=== PATIENT | female | born 1965 | race Caucasian/White ===

== ENCOUNTER 2019-01-22 11:07 | Inpatient (IN) ==
[2019-01-22] MEDS ORDERED: Clindamycin 900 MG/50 ML 900 MG/50 ML IV.SOLN IVPB ONE (11:31)
[2019-01-22] MEDS ORDERED: Ringers Solution, Lactated 1,000 ML IVC SCH (11:45)
[2019-01-22] MEDS ORDERED: *HR* Morphine Sulfate/PF 10 MG/10 ML AMPUL ONE (11:57)
--- NOTE | 2019-01-22 12:24 | Anesthesia Evaluation PreOp ---
Date of Encounter: 01/22/19 Time of Encounter: 12:22 - Past History Planned Operation: Lap Assisted Vaginal Hysterectomy Cardiac History: Denies any Significant Hx Pulmonary History: Denies Any Significant HX MACHINE ROUGH ROUNDER History: Denies Any Significant HX Other Medical History: Other (RA) Anesthesia History: No Prior Anesthetic Complications, Past Anesthesia (D&C) : No Alcohol Use: none Drug use: none Medications and Allergies Ferrous Sulfate 325 mg PO BID 01/22/19 [History] Allergy/AdvReac Type Severity Reaction Status Date / Time Penicillins [PCN] Allergy Difficulty Verified 01/22/19 11:23 Breathing - Meds/Allergy Pre-op Review Medications Reviewed: Yes Allergies Reviewed: Yes Beta Blockers on Current Med List: No Anesthesia Results - Labs Laboratory Tests 01/16/19 01/16/19 11:10 11:10 WBC 4.0 L Hgb 12.6 Hct 39.1 Plt Count 315 Creatinine 0.90 Anesthesia Exam O2 Sat Height 1.57 m Weight 73.482 kg O2 Sat by Pulse Oximetry 95 Vital Signs Temp Pulse Resp BP Pulse Ox 98.3 F 69 18 125/86 95 01/22/19 11:28 01/22/19 11:28 01/22/19 11:28 01/22/19 11:28 01/22/19 11:28 - HEENT Pupil (Motor): Pupils equal, EOMI Mallampati: II Teeth: Normal Oral Opening: Greater than 3 - MACHINE ROUGH ROUNDER LOC: Oriented MACHINE ROUGH ROUNDER Motor: Normal RUE, Normal LUE, Normal RLE, Normal LLE, Normal Face MACHINE ROUGH ROUNDER Sensory: Normal: RUE, LUE, RLE, LLE, Face - Cardiac Rhythm: Regular Murmur: None JVD: No Carotid Bruit: No - Pulmonary Breath Sounds: bilateral Clear Respiratory Effort: Symmetrical Anesthesia Assess/Plan ASA Score: 2 Level of consciousness: Cooperative Anesthetic Plan: General Autologous Blood: Yes Monitoring Plan: Standard Monitors Recovery Plan: PACU
[2019-01-22] MEDS ORDERED: *HR* Propofol 200 MG/20 ML VIAL IVP ONE (13:22)
[2019-01-22] MEDS ORDERED: Neostigmine Methylsulfate 3 MG/3 ML SYRINGE ONE (13:23)
[2019-01-22] MEDS ORDERED: Lidocaine -MPF 2% 2 ML VIAL ONE (13:23)
[2019-01-22] MEDS ORDERED: Ketorolac 30 MG/ML VIAL ONE (13:23)
[2019-01-22] MEDS ORDERED: Ondansetron 4 MG/2 ML VIAL ONE (13:23)
[2019-01-22] MEDS ORDERED: Dexamethasone 4 MG/ML VIAL ONE (13:23)
[2019-01-22] MEDS ORDERED: *HR* Rocuronium Bromide 50 MG/5 ML VIAL ONE ×2 (13:23→15:08)
[2019-01-22] MEDS ORDERED: *HR* Midazolam HCl 2 MG/2 ML VIAL ONE (13:45)
[2019-01-22] MEDS ORDERED: *HR* FentaNYL (PF) 100 MCG/2 ML VIAL ONE (13:45)
[2019-01-22] MEDS ORDERED: *HR* Belladonna Alkaloids/Opium 30 MG RECTAL SUPPOSITORY RC ONE (13:50)
[2019-01-22] MEDS ORDERED: Bupivacaine/EPI 1:200k 0.25%PF 30 ML VIAL ONE (13:50)
--- NOTE | 2019-01-22 13:50 | History & Physical Report ---
Date of Encounter: 01/22/19 Time of Encounter: 13:49 24 Hour HP Update - Instructions Instructions: If the History and Physical is less than 30 days old and was completed prior to A.M. admission and or procedure and has NOT been updated on calendar day of procedure please complete this update prior to performing procedure. - Update Patient reports changes in Medical Condition: No Changes in examination, assessment, or condition: No Changes in Medication: No Preop tests/diagnostics Reviewed: Yes Surgery Remains Indicated: Yes Consent for Planned Operative Procedure(s) Verified: Yes - Pre-Operative Checklist Preoperative Checklist Indicated: Yes Prophylactic Antibiotic Ordered: Yes Home Medications Include Beta Kim: No Beta Kim Taken Today (Day of Surgery): No Beta Kim Taken Yesterday (Day Prior to Surgery): No Is VTE Prophylaxis Indicated?: Yes - Attending Attestation steven marquez md facog
[2019-01-22] MEDS ORDERED: EPHEDrine 50 MG/ML VIAL ONE (15:23)
--- NOTE | 2019-01-22 16:43 | OB/GYN Procedure Note ---
Hysterectomy - Diagnosis Date of procedure: 01/22/19 Hysterectomy pre-op: menorrhagia, symptomatic leiomyomata, other (Anemia) Post-op diagnosis: same - Procedure Hysterectomy procedure: total abdominal hysterectomy, lap assisted vaginal hysterectomy (attempted), left salpingo oophorectomy, right salpingo oophorectomy, other (Lysis of adhesions) Surgeon: Piter Bejarano Was there an bankruptcy legal assistant present: Yes Setter Off: Whitney Costello Anesthesia provider: Ashutosh Willis Anesthesia Type: General (Intrathecal) Estimated blood loss (cc): 140 Complications: none Fluids: crystalloid Urine output (cc): 50 Specimens: right ovary, uterus, cervix, left ovary, right fallopian tube, left fallopian tube Findings: Uterus was enlarged consistent with fibroids. There is areas consistent with adenomyosis on the fundus of the uterus. Dense adhesions were noted between the bladder and the anterior surface of the uterus. Tubes and ovaries appeared be normal. Disposition: PACU Narrative: Patient taken to the operating room. After satisfactory anesthesia was achieved patient placed in dorsolithotomy position and prepped and draped in usual manner. Nava catheter was inserted. After appropriate timeout, anterior lip cervix grasped single-toothed tenaculum. Chet cannula was inserted. Pneumoperitoneum created. Upon visualizing the dense adhesion between the bladder and uterus decision was made to proceed with open procedure. The abdomen was entered through standard Maylard incision. The Debra retractor was placed. Uterus was grasped. [place] clamps were placed. Infundibulopelvic ligaments were coagulated on both sides and cut. Round ligaments coagulated and cut. The bladder was dissected away from the lower uterine segment with sharp and blunt dissection. Cardinal ligaments coagulated on both sides and cut. Uterosacral ligaments were clamped cut and suture ligated with 0 Monocryl. The vagina was entered anteriorly. Cervix uterus and attached adnexa were removed and sent to pathology for analysis. Cuff was closed with 0 Monocryl left to right right left. After assurance of hemostasis, peritoneum over lying the vagina was reapproximated. Ureters were noted to course freely along pelvic sidewall. The abdomen was closed standard fashion using #1 PDS strata fix on the fascia. 2-0 Vicryl on the subcutaneous. 3-0 Monocryl on the skin. The infraumbilical incision had been closed previously with 3-0 Monocryl. Sterile dressing was applied. Patient did well was taken to recovery room in satisfactory condition. Counts were correct.
--- NOTE | 2019-01-22 17:27 | Anesthesia Evaluation Post Op ---
Date of Encounter: 01/22/19 Time of Encounter: 17:27 - Vital Signs Vital Signs: Vital Signs Temperature 98.3 F 01/22/19 11:28 Pulse Rate 69 01/22/19 11:28 Respiratory Rate 18 01/22/19 11:28 Blood Pressure 125/86 01/22/19 11:28 O2 Sat by Pulse Oximetry 95 01/22/19 11:28 Temperature 97.2 F L 01/22/19 17:20 Pulse Rate 48 01/22/19 17:20 Respiratory Rate 16 01/22/19 17:20 Blood Pressure 120/74 01/22/19 17:20 O2 Sat by Pulse Oximetry 100 01/22/19 17:20 - Lungs Lungs: Clear Ascult./Percussion - Airway Airway: Non-obstructed - Cardiovascular Regular Rate - Mental Status Mental Status: Alert & Oriented, Answers Appropriately - Pain Pain Scale: 4 Pain Scale used: Numeric (1 - 10) - Nausea Vomiting Nausea Vomiting: Not Present - Hydration Hydration: Ice chips, Nava catheter - Discharge PostOp Status: Transfer Patient to floor
[2019-01-22] MEDS ORDERED: Sennosides 8.6 MG TABLET PO PRN (17:50)
[2019-01-22] MEDS ORDERED: Naloxone 0.4 MG/ML INJ IVP PRN ×2 (17:50)
[2019-01-22] MEDS ORDERED: Ondansetron 4 MG/2 ML VIAL IVP PRN (17:50)
[2019-01-22] MEDS ORDERED: *HR* OxyCODONE/APAP 5/325 TABLET PO PRN (17:50)
[2019-01-22] MEDS ORDERED: Ringers Solution, Lactated 1,000 ML ONE (18:16)
[2019-01-23] MEDS: *HR* HYDROcodone/Acet 5/325 mg TABLET PO PRN ×2 (05:45→10:57)
[2019-01-23 08:44] LABS: Basophils % 0.1 %; Hemoglobin 11.5 g/dL (11.5-15.4); Immature Granulocytes % 0.3 % (0-4); Lymphocytes # 0.7 K/mcL (0.6-4.6); Lymphocytes % 7.7 %; Mean Corpuscular HGB Conc 32.9 g/dL (31.6-35.5); Mean Corpuscular Hemoglobin 27.9 pg (28.0-33.3); Mean Platelet Volume 9.5 fL (9.4-12.4); Monocytes # 0.9 K/mcL (0.0-1.3); Monocytes % 10.1 %; Neutrophils # 7.2 K/mcL (1.6-8.9); Platelet Count 274 K/mcL (140-400); Red Blood Count 4.12 M/mcL (3.82-4.97); Red Cell Distribution Width 14.5 % (11.5-14.5); Segmented Neutrophils % 81.8 %
[2019-01-23 08:45] LABS: eGFR For African Americans > 60 (> 60); eGFR For Non-African Americans > 60 (> 60)
[2019-01-23 08:50] LABS: White Blood Count 8.8 K/mcL (4.3-11.1)
--- NOTE | 2019-01-23 10:32 | Discharge Summary ---
Date of Encounter: 01/23/19 Time of Encounter: 10:31 - Discharge Diagnosis (1) Uterine fibroid Priority: Primary Status: Chronic Qualifiers: Uterine leiomyoma location: intramural Qualified Code(s): D25.1 - Intramural leiomyoma of uterus (2) Menorrhagia Priority: Secondary Status: Chronic Qualifiers: Menorrahagia type: with irregular cycle Qualified Code(s): N92.1 - Excessive and frequent menstruation with irregular cycle (3) Anemia Priority: Secondary Status: Chronic Qualifiers: Anemia type: iron deficiency Iron deficiency anemia type: chronic blood loss Qualified Code(s): D50.0 - Iron deficiency anemia secondary to blood loss (chronic) (4) Post-op pain Priority: Secondary Status: Acute - Discharge Medications Prescriptions: New HYDROcodone/Acet 5/325 mg [[place] 5-325 mg] 1 tab PO Q4HR PRN 7 Days #28 tablet PRN Reason: Moderate Pain (4-6) No Action Ferrous Sulfate 325 mg PO BID Home Medications: Ferrous Sulfate 325 mg PO BID 01/22/19 [History] HYDROcodone/Acet 5/325 mg [[place] 5-325 mg] 1 tab PO Q4HR PRN 7 Days #28 tablet 01/23/19 [Rx] Allergies/Adverse Reactions: Allergy/AdvReac Type Severity Reaction Status Date / Time Penicillins [PCN] Allergy Difficulty Verified 01/22/19 11:23 Breathing Data Procedures and tests throughout hospitalization: Laboratory Tests 01/23/19 01/23/19 07:55 07:55 WBC 8.8 D RBC 4.12 Hgb 11.5 Hct 35.0 L MCV 85.0 MCH 27.9 L MCHC 32.9 RDW 14.5 Plt Count 274 MPV 9.5 Immature Gran % 0.3 Seg Neutrophils % 81.8 Lymphocytes % 7.7 Monocytes % 10.1 Eosinophils % 0.0 Basophils % 0.1 Neutrophils # 7.2 Lymphocytes # 0.7 Monocytes # 0.9 Eosinophils # 0.0 Basophils # 0.0 Creatinine 0.83 Est GFR ( Amer) > 60 Est GFR (Non-Af Amer) > 60 Labs on day of discharge: Labs from last 24 hours 01/23/19 01/23/19 07:55 07:55 WBC 8.8 D RBC 4.12 Hgb 11.5 Hct 35.0 L MCV 85.0 MCH 27.9 L MCHC 32.9 RDW 14.5 Plt Count 274 MPV 9.5 Immature Gran % 0.3 Seg Neutrophils % 81.8 Lymphocytes % 7.7 Monocytes % 10.1 Eosinophils % 0.0 Basophils % 0.1 Neutrophils # 7.2 Lymphocytes # 0.7 Monocytes # 0.9 Eosinophils # 0.0 Basophils # 0.0 Creatinine 0.83 Est GFR ( Amer) > 60 Est GFR (Non-Af Amer) > 60 Date of admission: 01/22/19 17:22 Primary care physician: Darshana Carrillo - Patient Status Disposition: Home, Self-Care Condition: Good Functional capacity at discharge: independent ambulation Overall status at discharge: patient is progressing back to baseline - Discharge Instructions Follow Up With: Darshana Carrillo, [employer] [Primary Care Provider] - Additional Instructions: You have had a surgery called a hysterectomy. This is an incision made in your abdomen to remove your uterus, tubes, ovaries or all of these. If your fallopian tubes and ovaries were removed, you may need to talk hormone replacement medications. Your doctor will discuss this with you. If your tubes and ovaries were not removed, you can expect to have menopause (change of life) at the normal time. This is usually between the age of 40 and 50. MEDICATIONS: -Continue taking your home medications as prescribed by your doctor prior to surgery. You will be notified of any changes in home medications before leaving the hospital. -A prescription for pain medication may be given to you. Take it as directed. It is important to control your pain during recovery. BOWEL MOVEMENTS: -You may not have a bowel movement for a few days after surgery. The first one may be difficult to pass. Do not strain in order to go, and allow yourself plenty of time when going for the first time following your surgery. -To help soften your stool, eat a diet high in fiber. This includes foods such as cereals, whole grain breads and vegetables. You can also take a fiber supplement or stool softeners, which your provider may prescribe for you. DIET: -Your appetite may be decreased following surgery. You will be eating regular food before you are discharged from the hospital. Start out with small amounts of food and increase your meals as you are able to tolerate them without feeling nauseated. -Eat healthy foods to help you heal more quickly and increase your energy. Avoid foods that cause gas, as this will make you feel uncomfortable. -Drink 6-8 glasses of water each day. SMOKING: -Smoking increases your chances of post-surgical complications. It is never too late to quit. Ask your nurse or provider for information to help you quit smoking. ACTIVITY: -Restrict yourself to light activity and increase your activity level slowly, resting frequently. -Be aware your pain medication may cause drowsiness. -It usually takes 4-8 weeks for the body to heal. -You may walk slowly. Limit stair climbing. Do not exercise until the provider tells you it is safe to do so. -No douching, tampons or sex for 6 weeks. This will allow time for healing. You can no longer get after having a hysterectomy but will still need to protect yourself from sexually transmitted diseases. -Lift nothing heavier than 10-15 pounds for 2 weeks. -You can drive in about 2 weeks, unless otherwise instructed by your provider. -You can expect to return to work or school and other normal activities in about 6 weeks or as directed by your provider. BATHING: -You can bathe or shower in 2 days. Wash the area of your incision with soap and water. You may have steri-strips (thin strips of tape to hold the incision together while it heals). Keep these clean and dry. Do not pull them off, they will fall off. STRESS AND MOOD -A hysterectomy may change the way that you view yourself. These are normal feelings. Talk to your family and health care provider about these feelings. If you feel depressed, seek counseling or talk to your provider about treatment options. It is important in the healing process to have a healthy mind. WHEN TO CALL THE DOCTOR: -If your stitches are swollen, red or have drainage coming from them or if you notice them coming apart. It is normal for your incision to feel numb up to a year. -If you are having chills, fever or a reaction to your medicine. -If your incision is bleeding or you have increased pain in your incision. -If within an hour you have soaked a sanitary pad with vaginal bleeding. -If you are unable to urinate or it has been 4-6 hours since you have urinated. Also, if you have burning with urination or feel like you cant completely empty your bladder; call your provider for further instructions. -If you have a smelly discharge coming from your incision or vagina. -If you have any questions about your surgery or medications. If you have difficulty breathing, chest pain, uncontrolled bleeding or any other emergency, call 911 or report to the nearest emergency department immediately. 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 Time Attestation: Total time spent providing and/or coordinating discharge services: Exam - Constitutional Vitals: Temp Pulse Resp BP Pulse Ox 98.0 F 57 16 103/67 98 01/23/19 05:30 01/23/19 05:30 01/23/19 05:30 01/23/19 05:30 01/23/19 05:30 General appearance IM: A&O X 3 - Respiratory Respiratory exam: Present: CTAB - Cardiovascular Cardiovascular exam IM: Present: RRR - GI/Abdominal GI/Abdominal exam IM: normal bowel sounds, soft Incision: normal, intact - Extremities Exam Extremities exam IM: Present: full ROM - Neurological Exam Neurological exam: CN II-XII intact - VTE Documentation of Mechanical Device: Intermittent pneumatic compression device - Attending Attestation steven marquez md facog
[2019-01-23 10:40] VITALS: BP 103/68
== END 2019-01-23 11:05 | disposition home or self-care (01) | DRG 513 ==
LOC: SAMDAY 11:07 → 1NENUOBS 17:22
PROVIDERS: ADMIT Obstetrics & Gynecology; ATTEND Obstetrics & Gynecology
PROC: GYNLAVH (ICD-10-PCS; 2019-01-22 12:55)